=== PATIENT | female | born 1965 | race Caucasian/White ===

== ENCOUNTER 2021-10-25 16:03 | Emergency (ER) | payer MEDICARE, BC ==
[~2021-10-25] VITALS: Ht 154.9 cm; Wt 68.0 kg
[2021-10-25 16:19] VITALS: BP 164/98
[2021-10-25] MEDS ORDERED: diphenhydrAMINE 50 mg/ml inj IM ONE (17:50)
[2021-10-25] MEDS ORDERED: LORazepam 1 MG tablet PO ONE (17:50)
[2021-10-25] MEDS ORDERED: HYDR-3686 PO (17:53)
== END 2021-10-25 18:12 | disposition home or self-care (01) ==
LOC: ER 16:04
DX: L29.9 Pruritus, unspecified (principal); R51.9 Headache, unspecified; Z79.899 Other long term (current) drug therapy
CPT/HCPCS: 96372; 99283; J1200

== ENCOUNTER 2022-03-23 13:12 | Emergency (ER) | payer MEDICARE, BC ==
[~2022-03-23] VITALS: Ht 154.9 cm; Wt 62.3 kg
[2022-03-23 13:23] VITALS: BP 154/85
[2022-03-23] MEDS ORDERED: LORazepam 1 MG tablet PO ONE (15:25)
[2022-03-23 15:33] LABS: BASOPHILS # (AUTO) 0.1 X10'3 (0-0.2); BASOPHILS % (AUTO) 0.8 % (0-1); EOSINOPHILS % (AUTO) 0.4 % (0-6); HEMATOCRIT 41.2 % (35.0-45.0); HEMOGLOBIN 13.5 g/dl (12.0-16.0); LYMPHOCYTES # (AUTO) 2.4 X10'3 (1.1-4.8); MEAN CORPUSCULAR HEMOGLOBIN 29.5 PG (27.0-31.0); MEAN CORPUSCULAR HGB CONC 32.8 g/dL (33.0-36.5); MEAN PLATELET VOLUME 7.4 FL (7.4-10.4); MONOCYTES # (AUTO) 0.7 X10'3 (0-0.9); MONOCYTES % (AUTO) 6.7 % (2-12); NEUTROPHILS % (AUTO) 71.1 % (42-75); PLATELET COUNT 442 X10'3 (140-440); RED BLOOD COUNT 4.58 X10'6 (4.20-5.60); RED CELL DISTRIBUTION WIDTH 13.3 % (11.5-14.5); WHITE BLOOD COUNT 11.3 X10'3 (4.5-11.0)
[2022-03-23 15:57] LABS: CLARITY,URINE SLIGHTLY CLOUDY (Clear); COLOR,URINE YELLOW (Yellow); GLUCOSE, URINE NEGATIVE (Neg); KETONES,URINE TRACE mg/dl (Neg); LEUKOCYTE ESTERASE ,URINE SMALL (Neg); NITRITES, URINE NEGATIVE (Neg); OCCULT BLOOD,URINE MODERATE (Neg); PH,URINE 5.5 (4.8-8.0); PROTEIN,URINE NEGATIVE (Neg); UROBILINOGEN,URINE 0.2 E.U/dL (0.2-1.0)
[2022-03-23 15:58] LABS: URINE HCG NEGATIVE (NEG)
[2022-03-23 16:01] LABS: UA COLLECTION TYPE CLN CATCH MIDSTREAM
[2022-03-23 16:02] LABS: MUCUS STRANDS MANY /LPF (Neg); SQUAMOUS EPITHELIAL CELL,UR MANY /LPF (FEW)
[2022-03-23 16:03] LABS: HYALINE CASTS 0-3 /LPF (NEGATIVE)
[2022-03-23 16:04] LABS: CAL OXALATE CRYSTALS 4+ /HPF (NEGATIVE)
[2022-03-23 16:05] LABS: TRANSITIONAL EPI CELLS,URINE MODERATE /HPF; WBC,URINE 30-50 /HPF (0-4)
[2022-03-23 16:06] LABS: BACTERIA,URINE FEW /HPF (Neg)
[2022-03-23 16:08] LABS: URINE AMPHETAMINE SCREEN POSITIVE (Neg); URINE BARBITUATE SCREEN NEGATIVE (Neg); URINE BENZODIAZEPINES SCREEN NEGATIVE (Neg); URINE CANNABINOID SCREEN POSITIVE (Neg); URINE COCAINE SCREEN NEGATIVE (Neg); URINE METHADONE SCREEN NEGATIVE (Neg); URINE OPIATE SCREEN NEGATIVE (Neg); URINE PHENCYCLIDINE SCREEN NEGATIVE (Neg)
[2022-03-23 16:27] LABS: APTT 31 SECONDS (22-32)
[2022-03-23 16:32] LABS: ALANINE AMINOTRANSFERASE 26 U/L (12-78); ALBUMIN 3.9 G/DL (3.4-5.0); ALKALINE PHOSPHATASE 117 IU/L (46-116); ANION GAP 8 (8-16); ASPARTATE AMINO TRANSFERASE 25 U/L (10-37); BILIRUBIN,TOTAL 0.2 MG/DL (0.1-1.0); BLOOD UREA NITROGEN 17 MG/DL (7-18); C-REACTIVE PROTEIN 3.44 MG/DL (0.0-0.5); CALCIUM 8.9 MG/DL (8.5-10.1); CHLORIDE 106 MMOL/L (99-107); CREATININE 0.85 MG/DL (0.40-0.90); GLUCOSE 115 MG/DL (70-104); LIPASE 145 U/L (73-393); POTASSIUM 3.2 MMOL/L (3.5-5.1); SODIUM 143 MMOL/L (135-145); TOTAL CARBON DIOXIDE 29.2 MMOL/L (24-32); TOTAL PROTEIN 7.9 G/DL (6.4-8.2); eGFR 69 ML/MIN
[2022-03-23] MEDS ORDERED: cephalexin 250mg capsule PO ONE (17:00)
[2022-03-23] MEDS ORDERED: CEPH500C81 PO (17:04)
== END 2022-03-23 18:10 | disposition home or self-care (01) ==
LOC: ER 13:13
DX: S61.012A Laceration without foreign body of left thumb without damage to nail, initial encounter (principal); S50.12XA Contusion of left forearm, initial encounter; N39.0 Urinary tract infection, site not specified; Z79.2 Long term (current) use of antibiotics; W26.8XXA Contact with other sharp object(s), not elsewhere classified, initial encounter; Y93.89 Activity, other specified; Y92.89 Other specified places as the place of occurrence of the external cause; Y99.8 Other external cause status
CPT/HCPCS: 36415; 80053; 80305; 80346; 81001; 81025; 83690; 85025; 85610; 85730; 86140; 99283